=== PATIENT | female | born 1935 | race Caucasian/White ===

== ENCOUNTER 2017-12-22 19:53 | Emergency (ER) | payer OTHER ==
[~2017-12-22] VITALS: Ht 154.9 cm; Wt 55.0 kg
[~2017-12-22 19:53] MED LIST: ADVAIR HFA120 INHALA IH; ATENOLOL100 MG PO; BACLOFEN10 MG PO; BENZONATATE100 MG PO; HYDROCHLOROTHIA25 MG PO; LEVOFLOXACIN750 MG PO; MOTRIN800 MG PO; NICOTINE PATCH1 EAC2 TD; NORCO 5/3251 TABLET PO; PERCOCET 5/31 TABLET PO; PREDNISONE5 MG PO; PRILOSEC10 MG PO; PRILOSEC40 MG PO; PROVENTIL,2.5 MG/0.5 AEROSOL; SIMVASTATIN20 MG PO; SPIRIVA RESPIMAT4 GM IH; TRAMADOL HCL50 MG PO
[2017-12-22] MEDS ORDERED: ULTRAM50 MG PO (21:05)
== END 2017-12-22 22:02 | disposition home or self-care (01) ==
LOC: EME 19:53
DX: S90.31XA Contusion of right foot, initial encounter (principal); X50.1XXA Overexertion from prolonged static or awkward postures, initial encounter; I10 Essential (primary) hypertension; E78.5 Hyperlipidemia, unspecified; M79.89 Other specified soft tissue disorders
CPT/HCPCS: 73630; 99281; 99283